=== PATIENT | male | born 1990 | race Caucasian/White ===

== ENCOUNTER → 2016-11-22 | Outpatient (REF) | payer SELFPAY | LOC: M LAB REF 16:23 | PROVIDERS: ATTEND Physician Assistant | DX: R30.0 Dysuria (principal) ==

== ENCOUNTER → 2019-04-21 | Outpatient (CLI) | payer SELFPAY ==
--- NOTE | 2019-04-21 14:51 | REP ---
PA and lateral chest: There are no comparisons. The lung guy are clear. The cardiac size is normal. The shahbaz, mediastinum, and skeletal structures are unremarkable. Impression: Negative PA and lateral chest. Electronically Signed by Bradley Hsu MD 04/21/2019 02:43 P
== END ==
LOC: M LRY 14:06
PROVIDERS: ATTEND Physician Assistant
DX: R05 Cough (principal); R06.02 Shortness of breath